=== PATIENT | female | born 1990 | race Caucasian/White ===

== ENCOUNTER 2017-10-31 12:10 | Emergency (ER) | payer OTHER ==
[~2017-10-31] VITALS: Ht 175.3 cm; Wt 113.4 kg
[~2017-10-31 12:10] MED LIST: ALBU90OI; ALBU90OI INH; CIPRO500 MG PO; CYCL10 PO; Flagyl500 MG PO; IBUP400; MECL12.5 PO; METPRE4DP PO; Naprosyn500 MG PO; Norco 10-325 T1 EACH PO; Pepcid20 MG PO; Prilosec20 MG PO; TRAM50 PO
[2017-10-31] MEDS ORDERED: ALBU90OI61 (12:20)
[2018-04-03] MEDS ORDERED: ALBU90OI61 INH (19:27)
[2018-04-03] MEDS ORDERED: Vibramycin100 MG PO (19:53)
[2018-04-03] MEDS ORDERED: PROBIOTIC1 EAC1 PO (19:55)
[2018-04-03] MEDS ORDERED: FLUC150A PO (19:55)
== END 2017-10-31 13:07 | disposition home or self-care (01) ==
LOC: ER 12:10
DX: J02.9 Acute pharyngitis, unspecified (principal); Z88.8 Allergy status to other drugs, medicaments and biological substances; Z88.2 Allergy status to sulfonamides; I10 Essential (primary) hypertension; J45.909 Unspecified asthma, uncomplicated
CPT/HCPCS: 87081; 87430; 99283; J1100

== ENCOUNTER 2017-11-02 05:54 | Emergency (ER) | payer OTHER ==
[~2017-11-02] VITALS: Ht 175.3 cm; Wt 113.4 kg
[~2017-11-02 05:54] MED LIST changes: +ALBU90OI61
[2017-11-02] MEDS ORDERED: PSEU120ER PO (07:37)
[2017-11-02] MEDS ORDERED: Norco 5-325 Ta1 EACH PO (07:37)
[2018-04-03] MEDS ORDERED: ALBU90OI61 INH (19:27)
[2018-04-03] MEDS ORDERED: Vibramycin100 MG PO (19:53)
[2018-04-03] MEDS ORDERED: FLUC150A PO (19:55)
[2018-04-03] MEDS ORDERED: PROBIOTIC1 EAC1 PO (19:55)
== END 2017-11-02 07:48 | disposition home or self-care (01) ==
LOC: ER 05:54
DX: J03.90 Acute tonsillitis, unspecified (principal); J45.909 Unspecified asthma, uncomplicated; I10 Essential (primary) hypertension; Z88.2 Allergy status to sulfonamides; Z88.8 Allergy status to other drugs, medicaments and biological substances
CPT/HCPCS: 96361; 96374; 96375; 99283; J1200; J1885; J2930; J7030

== ENCOUNTER 2018-06-18 17:27 | Emergency (ER) | payer OTHER ==
[~2018-06-18] VITALS: Ht 175.3 cm; Wt 113.4 kg
[~2018-06-18 17:27] MED LIST changes: +ALBU90OI61 INH; +FLUC150A PO; +Norco 5-325 Ta1 EACH PO; +PROBIOTIC1 EAC1 PO; +PSEU120ER PO; +Vibramycin100 MG PO
[2018-06-18 18:55] LABS: BASOPHILS ABSOLUTE AUTO 0.02 K/mm3 (0.00-0.23); BASOPHILS PERCENT AUTO 0 % (0-2); EOSINOPHILS ABSOLUTE AUTO 0.15 K/mm3 (0.00-0.68); EOSINOPHILS PERCENT AUTO 2 % (0-6); Hematocrit 41.9 % (33.0-51.0); IMMATURE GRAN ABSOLUTE AUTO 0.01 K/mm3 (0.00-0.10); IMMATURE GRAN PERCENT AUTO 0 % (0-1); LYMPHOCYTES ABSOLUTE AUTO 1.39 K/mm3 (0.84-5.20); LYMPHOCYTES PERCENT AUTO 20 % (21-46); MONOCYTES ABSOLUTE AUTO 0.89 K/mm3 (0.16-1.47); MONOCYTES PERCENT AUTO 13 % (4-13); Mean Corpuscular HGB 30.6 pg (26.0-34.0); Mean Corpuscular HGB Conc 33.4 g/dL (31.5-36.5); Mean Corpuscular Volume 92 fL (80-100); Mean Platelet Volume 10.3 fL (9.1-12.4); NEUTROPHILS ABSOLUTE AUTO 4.54 K/mm3 (1.96-9.15); NEUTROPHILS PERCENT AUTO 65 % (41-73); Platelet Count 237 K/mm3 (150-400); RDW Coefficient Variation 13.6 % (11.7-14.2); RDW Standard Deviation 45.6 fL (35.1-46.3); Red Blood Cell Count 4.57 M/mm3 (3.80-5.20)
[2018-06-18 19:27] LABS: Alanine Aminotransfer (ALT/SGP 81 U/L (12-78); Albumin, Blood 3.7 g/dL (3.4-5.0); Albumin/Globulin Ratio 0.8 (0.8-1.8); Alk Phos 85 U/L (50-136); Anion Gap 8 mmol/L (6-16); Aspartate Aminotrans (AST/SGOT 35 U/L (12-37); Bilirubin, Total 0.3 mg/dL (0.1-1.0); Blood Urea Nitrogen 13 mg/dL (8-24); Bun/Creatinine Ratio 21.8 (12.0-20.0); CO2, Blood 25 mmol/L (21-32); Calcium, Blood 8.9 mg/dL (8.5-10.1); Chloride, Blood 105 mmol/L (98-108); Globulin, Blood 4.8 g/dL (2.2-4.0); Glomerular Filtration Rate >60 (60-); Glucose, Blood 75 mg/dL (70-99); Potassium, Blood 3.6 mmol/L (3.5-5.5); Sodium, Blood 138 mmol/L (136-145); Total Protein, Blood 8.5 g/dL (6.4-8.2)
[2018-06-18] MEDS ORDERED: Atrovent Inha12.9 GM INH (21:04)
[2018-06-18] MEDS ORDERED: Vancocin HCl125 MG PO (22:29)
[2018-06-18] MEDS ORDERED: LOPE2C PO (22:29)
[2018-06-18 23:40] LABS: Adenovirus F 40/41 Not Detected (NOT DETECT); Astrovirus Not Detected (NOT DETECT); Campylobacter Sp Not Detected (NOT DETECT); Cryptosporidium Not Detected (NOT DETECT); Cyclospora Cayetanensis Not Detected (NOT DETECT); E. Coli O157 Not Detected (NOT DETECT); Entamoeba Histolytica Not Detected (NOT DETECT); Enteroaggregative E. coli-EAEC Not Detected (NOT DETECT); Enteropathogenic E. coli-EPEC Not Detected (NOT DETECT); Enterotoxigenic E. coli-ETEC Not Detected (NOT DETECT); Giardia Lamblia Not Detected (NOT DETECT); Norovirus GI/GII Not Detected (NOT DETECT); Plesiomonas Shigelloides Not Detected (NOT DETECT); Rotavirus A Not Detected (NOT DETECT); Salmonella Sp Not Detected (NOT DETECT); Sapovirus Not Detected (NOT DETECT); Shiga Toxin-prod E. coli-STEC Not Detected (NOT DETECT); Shigella/Enteroin E. coli-EIEC Not Detected (NOT DETECT); Vibrio Cholerae Not Detected (NOT DETECT); Vibrio Sp Not Detected (NOT DETECT); Yersinia Enterocolitica Not Detected (NOT DETECT)
== END 2018-06-19 00:23 | disposition home or self-care (01) ==
LOC: ER 17:27
PROVIDERS: Emergency Medicine
DX: K92.1 Melena (principal); R19.7 Diarrhea, unspecified; Z88.2 Allergy status to sulfonamides; Z88.8 Allergy status to other drugs, medicaments and biological substances; Z79.899 Other long term (current) drug therapy; Z79.2 Long term (current) use of antibiotics; J45.909 Unspecified asthma, uncomplicated; I10 Essential (primary) hypertension
CPT/HCPCS: 36415; 80053; 81025; 85025; 87507; 99283

== ENCOUNTER 2018-07-01 13:27 | Observation (INO) | payer OTHER ==
[~2018-07-01] VITALS: Ht 175.3 cm; Wt 112.2 kg
[~2018-07-01 13:27] MED LIST changes: +Atrovent Inha12.9 GM INH; +LOPE2C PO; +Vancocin HCl125 MG PO
[2018-07-01 14:20] LABS: BASOPHILS ABSOLUTE AUTO 0.02 K/mm3 (0.00-0.23); BASOPHILS PERCENT AUTO 0 % (0-2); EOSINOPHILS ABSOLUTE AUTO 0.08 K/mm3 (0.00-0.68); EOSINOPHILS PERCENT AUTO 1 % (0-6); Hematocrit 41.2 % (33.0-51.0); IMMATURE GRAN ABSOLUTE AUTO 0.01 K/mm3 (0.00-0.10); IMMATURE GRAN PERCENT AUTO 0 % (0-1); LYMPHOCYTES ABSOLUTE AUTO 1.17 K/mm3 (0.84-5.20); LYMPHOCYTES PERCENT AUTO 16 % (21-46); MONOCYTES ABSOLUTE AUTO 0.84 K/mm3 (0.16-1.47); MONOCYTES PERCENT AUTO 12 % (4-13); Mean Corpuscular HGB 30.8 pg (26.0-34.0); Mean Corpuscular Volume 91 fL (80-100); Mean Platelet Volume 10.4 fL (9.1-12.4); NEUTROPHILS ABSOLUTE AUTO 5.08 K/mm3 (1.96-9.15); NEUTROPHILS PERCENT AUTO 71 % (41-73); Platelet Count 226 K/mm3 (150-400); RDW Coefficient Variation 13.2 % (11.7-14.2); RDW Standard Deviation 43.8 fL (35.1-46.3); Red Blood Cell Count 4.54 M/mm3 (3.80-5.20)
[2018-07-01 14:36] LABS: Alanine Aminotransfer (ALT/SGP 51 U/L (12-78); Albumin, Blood 3.7 g/dL (3.4-5.0); Albumin/Globulin Ratio 0.8 (0.8-1.8); Alk Phos 79 U/L (50-136); Anion Gap 6 mmol/L (6-16); Aspartate Aminotrans (AST/SGOT 25 U/L (12-37); Bilirubin, Total 0.2 mg/dL (0.1-1.0); Blood Urea Nitrogen 8 mg/dL (8-24); Bun/Creatinine Ratio 11.7 (12.0-20.0); CO2, Blood 26 mmol/L (21-32); Calcium, Blood 8.4 mg/dL (8.5-10.1); Chloride, Blood 108 mmol/L (98-108); Creatinine, Blood 0.68 mg/dL (0.40-1.00); Globulin, Blood 4.9 g/dL (2.2-4.0); Glomerular Filtration Rate >60 (60-); Glucose, Blood 88 mg/dL (70-99); Potassium, Blood 3.6 mmol/L (3.5-5.5); Sodium, Blood 140 mmol/L (136-145); Total Protein, Blood 8.6 g/dL (6.4-8.2)
[2018-07-01 14:52] LABS: International Normalized Ratio 0.98; Prothrombin Time Results 10.1 Sec (9.7-11.5)
[2018-07-01 18:07] LABS: Hematocrit 43.5 % (33.0-51.0); Hemoglobin 14.3 g/dL (11.5-16.0)
[2018-07-01 23:13] LABS: Hematocrit 38.3 % (33.0-51.0); Hemoglobin 12.9 g/dL (11.5-16.0)
[2018-07-02 05:14] LABS: Hematocrit 40.9 % (33.0-51.0); Hemoglobin 13.8 g/dL (11.5-16.0); Mean Corpuscular HGB 30.4 pg (26.0-34.0); Mean Corpuscular HGB Conc 33.7 g/dL (31.5-36.5); Mean Corpuscular Volume 90 fL (80-100); Mean Platelet Volume 10.7 fL (9.1-12.4); Platelet Count 171 K/mm3 (150-400); RDW Coefficient Variation 13.2 % (11.7-14.2); RDW Standard Deviation 43.5 fL (35.1-46.3); Red Blood Cell Count 4.54 M/mm3 (3.80-5.20); White Blood Cell Count 6.07 K/mm3 (4.00-11.30)
[2018-07-02 05:35] LABS: Anion Gap 8 mmol/L (6-16); Blood Urea Nitrogen 5 mg/dL (8-24); Bun/Creatinine Ratio 7.3 (12.0-20.0); CO2, Blood 24 mmol/L (21-32); Calcium, Blood 7.7 mg/dL (8.5-10.1); Chloride, Blood 109 mmol/L (98-108); Creatinine, Blood 0.68 mg/dL (0.40-1.00); Glomerular Filtration Rate >60 (60-); Glucose, Blood 90 mg/dL (70-99); Potassium, Blood 3.7 mmol/L (3.5-5.5); Sodium, Blood 141 mmol/L (136-145)
[2018-07-02 11:08] LABS: Hematocrit 40.4 % (33.0-51.0); Hemoglobin 13.4 g/dL (11.5-16.0)
[2018-07-02] MEDS ORDERED: ALBU90OI INH (17:10)
[2018-07-02] MEDS ORDERED: CYCL10 PO (17:10)
[2018-07-02] MEDS ORDERED: Chewable-Vite1 EAC1 PO (17:11)
[2018-07-02] MEDS ORDERED: HYDR1TAB94 PO (17:11)
[2018-07-02 17:19] LABS: Hematocrit 41.6 % (33.0-51.0); Hemoglobin 13.7 g/dL (11.5-16.0)
== END 2018-07-02 17:46 | disposition home or self-care (01) ==
LOC: ER 13:27 → MEDS 13:28 → ER 16:51 → MEDS 16:51 → ER 07-02 15:13 → ENPENDDIS 07-02 17:35 → MEDS 07-02 17:46
PROVIDERS: Emergency Medicine; Internal Medicine; Internal Medicine Gastroenterology; Physician Assistant
PROC: 0DBE8ZX Excision of Large Intestine, Via Natural or Artificial Opening Endoscopic, Diagnostic (ICD-10-PCS; principal; 2018-07-02 13:00)
DX: K62.5 Hemorrhage of anus and rectum (principal); K64.1 Second degree hemorrhoids; R19.7 Diarrhea, unspecified; I10 Essential (primary) hypertension; J45.909 Unspecified asthma, uncomplicated; I73.00 Raynaud's syndrome without gangrene; E66.9 Obesity, unspecified; M19.039 Primary osteoarthritis, unspecified wrist; E28.2 Polycystic ovarian syndrome; Z88.2 Allergy status to sulfonamides; Z88.8 Allergy status to other drugs, medicaments and biological substances; Z87.891 Personal history of nicotine dependence; Z79.899 Other long term (current) drug therapy
CPT/HCPCS: 36415; 80048; 80053; 82272; 85014; 85018; 85025; 85027; 85610; 85651; 85730; 86141; 86850; 86900; 86901; 87177; 87209; 87493; 88305; 94762; 99285; C9113; G0378; J7042; J7120